=== PATIENT | male | born 1965 | race African-American/Black ===

== ENCOUNTER 2017-02-17 18:32 | Emergency (ER) | payer MEDICAID ==
[~2017-02-17] VITALS: Ht 188 cm; Wt 80.0 kg
[2017-02-17] MEDS ORDERED: KETOROLAC 60MG/2ML VIAL IM ONE (21:45)
[2017-02-17 22:31] VITALS: BP 131/84
== END 2017-02-17 23:33 | disposition home or self-care (01) ==
LOC: ER 18:32
DX: S39.012A Strain of muscle, fascia and tendon of lower back, initial encounter (principal); V49.40XA Driver injured in collision with unspecified motor vehicles in traffic accident, initial encounter; Y93.89 Activity, other specified; Y92.410 Unspecified street and highway as the place of occurrence of the external cause; F15.10 Other stimulant abuse, uncomplicated
CPT/HCPCS: 96372; 99283; J1885; Z7610

== ENCOUNTER 2017-02-17 23:38 | Emergency (ER) | payer MEDICAID ==
[~2017-02-17] VITALS: Ht 172.7 cm; Wt 65.0 kg
[2017-02-18] MEDS ORDERED: HYDROCODONE/ACETAMINOPHEN 5/325MG TABLET PO ONE (00:30)
[2017-02-18 02:20] VITALS: BP 133/113
== END 2017-02-18 03:06 | disposition home or self-care (01) ==
LOC: ER 02-18 01:54
DX: M25.552 Pain in left hip (principal); G89.29 Other chronic pain; F15.10 Other stimulant abuse, uncomplicated; V89.2XXA Person injured in unspecified motor-vehicle accident, traffic, initial encounter; Y93.89 Activity, other specified; Y92.488 Other paved roadways as the place of occurrence of the external cause
CPT/HCPCS: 72192; 73700; 99284; Z7610

== ENCOUNTER 2017-03-21 02:08 | Emergency (ER) | payer MEDICAID | END 2017-03-21 02:37 | disposition left against medical advice (07) | LOC: ER 02:10 | DX: R06.02 Shortness of breath (principal); Z53.21 Procedure and treatment not carried out due to patient leaving prior to being seen by health care provider ==

== ENCOUNTER 2017-05-22 12:17 | Emergency (ER) | payer MEDICAID ==
[~2017-05-22 12:17] MED LIST: ATOR20TA65 PO; COR6 PO; FURO-151 PO; HYDR-4001 PO; LISI2.5T47 PO; RIVA20TA PO
== END 2017-05-22 13:58 | disposition left against medical advice (07) ==
LOC: ER 13:47
DX: Z53.21 Procedure and treatment not carried out due to patient leaving prior to being seen by health care provider (principal)

== ENCOUNTER 2017-06-05 11:53 | Inpatient (IN) | payer MEDICAID ==
[~2017-06-05] VITALS: Ht 188 cm; Wt 80.3 kg
[2017-06-05 13:00] LABS: BASOPHILS % 0.7 % (0.0-2.0); HEMATOCRIT. 40.2 % (42.0-52.0); HEMOGLOBIN. 13.1 g/dL (14.0-18.0); LYMPHOCYTES % 14.3 % (20.0-50.0); MEAN CORPUSCULAR HEMOGLOBIN 28.5 pg (28.0-32.0); MEAN CORPUSCULAR VOLUME 87.7 fL (80.0-94.0); MEAN PLATELET VOLUME 10.6 fl (7.4-10.4); MONOCYTES % 9.1 % (2.0-8.0); NEUTROPHILS % 74.9 % (40.0-76.0); PLATELET 154 x1000/uL (130-400); RED BLOOD CELL COUNT 4.58 mill/uL (4.7-6.1); RED CELL DISTRIBUTION WIDTH 15.7 % (11.6-14.6)
[2017-06-05 13:05] LABS: CHLORIDE 105 mEq/L (98-107)
[2017-06-05 13:21] LABS: CARBON DIOXIDE 26 mEq/L (21-32)
[2017-06-05] MEDS ORDERED: FUROSEMIDE 40MG/4ML VIAL IVP ONE (15:00)
[2017-06-05] MEDS ORDERED: ENOXAPARIN 60MG/0.6ML SYR SUBCUT ONE (15:15)
[2017-06-05 15:33] LABS: INR 1.4; PARTIAL THROMBOPLASTIN TIME 27.1 sec (23.4-31.0); PROTHROMBIN TIME 15.1 sec (9.4-11.6)
[2017-06-05] MEDS ORDERED: KETOROLAC 30MG/ML VIAL IV ONE (16:30)
[2017-06-05 17:19] LABS: CLARITY URINE CLEAR (CLEAR); COLOR URINE YELLOW (YELLOW); KETONES URINE NEGATIVE (NEGATIVE); LEUKOCYTE ESTERASE URINE NEGATIVE (NEGATIVE); NITRITE URINE NEGATIVE (NEGATIVE); OCCULT BLOOD URINE NEGATIVE (NEGATIVE); PROTEIN URINE NEGATIVE (NEGATIVE); SPECIFIC GRAVITY URINE 1.012 (1.005-1.030)
[2017-06-05] MEDS ORDERED: CLONIDINE 0.1MG TABLET PO PRN (17:30)
[2017-06-05] MEDS ORDERED: ONDANSETRON HCL 4MG/2ML VIAL IV PRN (17:30)
[2017-06-05] MEDS ORDERED: DIPHENHYDRAMINE 50MG/ML VIAL IV PRN (17:30)
[2017-06-05] MEDS ORDERED: ACETAMINOPHEN 325MG TABLET PO PRN (17:30)
[2017-06-05 17:34] LABS: *AMPHETAMINES SCREEN URINE NEGATIVE (NEGATIVE); *BARBITURATES SCREEN URINE NEGATIVE (NEGATIVE); *BENZODIAZEPINES SCREEN URINE NEGATIVE (NEGATIVE); *COCAINE SCREEN URINE NEGATIVE (NEGATIVE); CANNABINOID URINE SCREEN NEGATIVE (NEGATIVE); METHADONE URINE SCREEN NEGATIVE (NEGATIVE); OPIATES URINE SCREEN NEGATIVE (NEGATIVE); PHENCYCLIDINE URINE SCREEN NEGATIVE (NEGATIVE)
[2017-06-05 18:27] VITALS: BP 103/55
[2017-06-05 18:40] VITALS: BP 103/55
[2017-06-05 19:45] VITALS: BP 108/78
[2017-06-05] MEDS: HYDROCODONE/ACETAMINOPHEN 5/325MG TABLET PO PRN (19:46)
[2017-06-06] VITALS: BP 108/77
[2017-06-06] MEDS: HYDROCODONE/ACETAMINOPHEN 5/325MG TABLET PO PRN ×5 (00:03→22:35)
[2017-06-06 04:00] VITALS: BP 111/75
[2017-06-06] MEDS: FUROSEMIDE 40MG/4ML VIAL IV SCH ×2 (05:40→16:05)
[2017-06-06 07:47] LABS: BASOPHILS % 0.9 % (0.0-2.0); EOSINOPHILS % 3.1 % (0.0-5.0); HEMATOCRIT. 38.1 % (42.0-52.0); HEMOGLOBIN. 12.4 g/dL (14.0-18.0); LYMPHOCYTES % 23.7 % (20.0-50.0); MEAN CORPUSCULAR HEMOGLOBIN 28.3 pg (28.0-32.0); MEAN CORPUSCULAR VOLUME 87.1 fL (80.0-94.0); MEAN PLATELET VOLUME 10.5 fl (7.4-10.4); MONOCYTES % 11.2 % (2.0-8.0); NEUTROPHILS % 61.1 % (40.0-76.0); PLATELET 143 x1000/uL (130-400); RED BLOOD CELL COUNT 4.38 mill/uL (4.7-6.1); RED CELL DISTRIBUTION WIDTH 15.5 % (11.6-14.6)
[2017-06-06 08:00] VITALS: BP 104/65
[2017-06-06 08:09] LABS: CARBON DIOXIDE 26 mEq/L (21-32); CHLORIDE 106 mEq/L (98-107); HDL CHOLESTEROL 31 mg/dL (40-59); LDL CHOLESTEROL 75 mg/dL (5-100); TROPONIN I 0.04 ng/mL (0.00-0.04)
[2017-06-06 12:00] VITALS: BP 107/79
[2017-06-06] MEDS: RIVAROXABAN 20 MG TABLET PO SCH (12:14)
[2017-06-06 16:00] VITALS: BP 107/74
[2017-06-06] MEDS: IPRATROPIUM/ALBUTEROL 0.5-3(2.5)MG/3ML NEB INH PRN (16:17)
[2017-06-06 20:00] VITALS: BP 120/69
[2017-06-06] MEDS: ATORVASTATIN CALCIUM 20MG TABLET PO SCH (21:00)
[2017-06-06] MEDS: CARVEDILOL 6.25 MG TABLET PO SCH (21:00)
[2017-06-07] VITALS: BP 127/65
[2017-06-07] MEDS: HYDROCODONE/ACETAMINOPHEN 5/325MG TABLET PO PRN ×4 (03:27→19:00)
[2017-06-07 03:51] VITALS: BP 108/77
[2017-06-07] MEDS: IPRATROPIUM/ALBUTEROL 0.5-3(2.5)MG/3ML NEB INH PRN (04:07)
[2017-06-07] MEDS: FUROSEMIDE 40MG/4ML VIAL IV SCH ×3 (06:59→17:11)
[2017-06-07] MEDS: CARVEDILOL 6.25 MG TABLET PO SCH (07:40)
[2017-06-07 08:00] VITALS: BP 120/49
[2017-06-07] MEDS: RIVAROXABAN 20 MG TABLET PO SCH (08:25)
[2017-06-07] MEDS: LISINOPRIL 2.5MG TABLET PO SCH (08:25)
[2017-06-07 12:00] VITALS: BP 133/82
[2017-06-07 16:00] VITALS: BP 108/58
[2017-06-07] MEDS: CARVEDILOL 12.5MG TABLET PO SCH (17:12)
[2017-06-07 20:00] VITALS: BP 115/77
[2017-06-07] MEDS: ATORVASTATIN CALCIUM 20MG TABLET PO SCH (20:11)
[2017-06-07] MEDS: LORAZEPAM 2MG/ML CPJ IV PRN (22:01)
[2017-06-08] VITALS: BP 139/70
[2017-06-08 04:56] VITALS: BP 110/67
[2017-06-08] MEDS: HYDROCODONE/ACETAMINOPHEN 5/325MG TABLET PO PRN ×3 (05:09→14:16)
[2017-06-08] MEDS: FUROSEMIDE 40MG/4ML VIAL IV SCH ×2 (06:11→06:15)
[2017-06-08] MEDS: CARVEDILOL 12.5MG TABLET PO SCH (07:40)
[2017-06-08 08:00] VITALS: BP 99/70
[2017-06-08] MEDS: RIVAROXABAN 20 MG TABLET PO SCH (09:00)
[2017-06-08] MEDS: LISINOPRIL 2.5MG TABLET PO SCH (09:00)
[2017-06-08 12:00] VITALS: BP 101/55
[2017-06-08] MEDS ORDERED: CARVEDILOL 12.5MG TABLET PO SCH ×2 (13:30→17:40)
[2017-06-08] MEDS ORDERED: CARVEDILOL 6.25 MG TABLET PO SCH (13:30)
[2017-06-08] MEDS ORDERED: AMIODARONE HCL 200 MG TABLET PO SCH ×3 (13:30→17:40)
[2017-06-08] MEDS: LORAZEPAM 2MG/ML CPJ IV PRN ×2 (15:23→20:11)
[2017-06-08 16:00] VITALS: BP_SYST 101; BP_SYST 103; BP_DIAS 59
[2017-06-08 16:39] LABS: CARBON DIOXIDE 24 mEq/L (21-32); CHLORIDE 102 mEq/L (98-107)
[2017-06-08 20:00] VITALS: BP 108/82
[2017-06-08] MEDS: CARVEDILOL 6.25 MG TABLET PO SCH (20:03)
[2017-06-08] MEDS: ATORVASTATIN CALCIUM 20MG TABLET PO SCH (20:03)
[2017-06-08] MEDS: AMIODARONE HCL 200 MG TABLET PO SCH (21:20)
[2017-06-09] VITALS (53 sets, daily range): BP systolic 63–180; BP diastolic 20–112
[2017-06-09] MEDS: ZOLPIDEM TARTRATE 5MG TABLET PO PRN
[2017-06-09] MEDS: AMIODARONE HCL 200 MG TABLET PO SCH ×3 (06:00→22:00)
[2017-06-09] MEDS: CARVEDILOL 6.25 MG TABLET PO SCH ×2 (08:23→21:00)
[2017-06-09] MEDS: LISINOPRIL 2.5MG TABLET PO SCH (08:23)
[2017-06-09] MEDS: RIVAROXABAN 20 MG TABLET PO SCH (08:29)
[2017-06-09] MEDS: LORAZEPAM 2MG/ML CPJ IV PRN ×2 (08:30→13:19)
[2017-06-09] MEDS: HYDROCODONE/ACETAMINOPHEN 5/325MG TABLET PO PRN (08:31)
[2017-06-09 11:47] LABS: BG BASE EXCESS -0.5 mmol/L (-2.0-2.0); BG CARBOXYHEMOGLOBIN 0.8 % (0.5-1.5); BG DEOXYHEMOGLOBIN 1.9 % (0.0-5.0); BG FRACTION INSPIRED OXYGEN 36; BG HCO3 ACT 19.4 mmol/L (22.0-26.0); BG METHEMOGLOBIN 0.1 % (0.0-1.5); BG OXYGEN SATURATION 98.1 % (92.0-98.5); BG OXYHEMOGLOBIN 97.2 % (94.0-97.0); BG PCO2 21.3 mmHg (35.0-45.0); BG PH 7.577 (7.350-7.450); BG PO2 96.9 mmHg (75.0-100.0); BG SAMPLE SITE RIGHT BRACHIAL; BG TOTAL HEMOGLOBIN 13.7 g/dL (12.0-18.0); BG VENT MODE NASAL CANNULA
[2017-06-09] MEDS ORDERED: AMIODARONE HCL IV SCH (12:30)
[2017-06-09] MEDS ORDERED: WATER IV SCH (12:30)
[2017-06-09] MEDS ORDERED: DEXTROSE 5% IV SCH (12:30)
[2017-06-09] MEDS: AMIODARONE HCL 900 MG in DEXT 5% WATER 482 ML IV PRN (12:31)
[2017-06-09] MEDS: NOREPINEPHRINE 4 MG in DEXT 5% WATER 246 ML IV PRN ×2 (13:01→18:13)
[2017-06-09] MEDS ORDERED: LORAZEPAM 2MG/ML CPJ IM SCH (13:15)
[2017-06-09] MEDS ORDERED: NOREPINEPHRINE 4 MG in DEXT 5% WATER 246 ML IV PRN (13:30)
[2017-06-09] MEDS ORDERED: AMIODARONE HCL 150 MG in DEXT 5% WATER 100 ML IV NR (13:30)
[2017-06-09] MEDS ORDERED: HALOPERIDOL LACTATE 5MG/ML VIAL IM PRN ×2 (14:15→15:15)
[2017-06-09] MEDS ORDERED: SODIUM CHLORIDE 0.9% 1,000 ML IV SCH (14:30)
[2017-06-09] MEDS ORDERED: DILTIAZEM HCL 5MG/ML 5ML VIAL IV NR (15:30)
[2017-06-09 15:49] LABS: BASOPHILS % 0.6 % (0.0-2.0); EOSINOPHILS % 0.8 % (0.0-5.0); HEMATOCRIT. 42.9 % (42.0-52.0); HEMOGLOBIN. 13.2 g/dL (14.0-18.0); LYMPHOCYTES % 27.2 % (20.0-50.0); MEAN CORPUSCULAR VOLUME 91.4 fL (80.0-94.0); MEAN PLATELET VOLUME 11.3 fl (7.4-10.4); MONOCYTES % 10.5 % (2.0-8.0); NEUTROPHILS % 60.9 % (40.0-76.0); PLATELET 153 x1000/uL (130-400); RED CELL DISTRIBUTION WIDTH 16.4 % (11.6-14.6)
[2017-06-09 15:55] LABS: PHOSPHORUS 6.2 mg/dL (2.5-4.9)
[2017-06-09] MEDS ORDERED: DEXTROSE 50% WATER 50ML SYRINGE IV PRN (16:11)
[2017-06-09] MEDS: DEXTROSE 50% WATER 50ML SYRINGE IV PRN ×2 (16:13→16:28)
[2017-06-09] MEDS: FOLIC ACID 1 MG, THIAMINE HCL 100 MG, MVI, ADULT NO.1 10 ML in DEXTROSE 5% WATER 1,000 ML IV SCH ×4 (16:16)
[2017-06-09 16:39] LABS: HEPATITIS B SURFACE ANTIGEN NEGATIVE
[2017-06-09] MEDS ORDERED: DOPAMINE 400MG PREMIX 250 ML IV PRN (16:45)
[2017-06-09] MEDS ORDERED: SODIUM POLYSTYRENE SULFONATE 15 G/60 ML BOT PR NR (16:45)
[2017-06-09] MEDS ORDERED: DILTIAZEM HCL 125 MG in SODIUM CHLORIDE 0.9% 100 ML IV SCH (17:00)
[2017-06-09 17:07] LABS: HEPATITIS B CORE AB IGM NEGATIVE
[2017-06-09 17:08] LABS: HEPATITIS A AB IGM NEGATIVE (NEGATIVE)
[2017-06-09 17:10] LABS: BG BASE EXCESS -17.2 mmol/L (-2.0-2.0); BG CARBOXYHEMOGLOBIN 1.3 % (0.5-1.5); BG DEOXYHEMOGLOBIN 3.1 % (0.0-5.0); BG FRACTION INSPIRED OXYGEN 36; BG HCO3 ACT 8.3 mmol/L (22.0-26.0); BG METHEMOGLOBIN 0.3 % (0.0-1.5); BG OXYGEN SATURATION 96.8 % (92.0-98.5); BG OXYHEMOGLOBIN 95.3 % (94.0-97.0); BG PCO2 20.7 mmHg (35.0-45.0); BG PH 7.223 (7.350-7.450); BG PO2 109.9 mmHg (75.0-100.0); BG SAMPLE SITE RIGHT RADIAL; BG VENT MODE NASAL CANNULA
[2017-06-09] MEDS ORDERED: SODIUM BICARBONATE 8.4% 1 MEQ/ML 50ML SYR IV NR ×3 (17:15→19:15)
[2017-06-09] MEDS ORDERED: STERILE WATER FOR INJECTION 10ML VIAL ONE (17:30)
[2017-06-09] MEDS ORDERED: PROPOFOL 10MG/ML 100ML 100 ML IV PRN (17:30)
[2017-06-09] MEDS ORDERED: ETOMIDATE 2MG/ML 10ML VIAL IV ONE (17:30)
[2017-06-09] MEDS ORDERED: VECURONIUM BROMIDE 10 MG/VIAL IV ONE (17:30)
[2017-06-09] MEDS: BLOOD SUGAR DIAGNOSTIC STRIP TEST SCH (17:48)
[2017-06-09 18:38] LABS: BG BASE EXCESS -14.3 mmol/L (-2.0-2.0); BG CARBOXYHEMOGLOBIN 1.3 % (0.5-1.5); BG DEOXYHEMOGLOBIN 0.2 % (0.0-5.0); BG FRACTION INSPIRED OXYGEN 100; BG HCO3 ACT 14.8 mmol/L (22.0-26.0); BG METHEMOGLOBIN 0.6 % (0.0-1.5); BG OXYGEN SATURATION 99.8 % (92.0-98.5); BG OXYHEMOGLOBIN 97.9 % (94.0-97.0); BG PCO2 46.5 mmHg (35.0-45.0); BG PO2 348.3 mmHg (75.0-100.0); BG SAMPLE SITE LEFT RADIAL; BG TIDAL VOLUME(mL) 500 mL; BG TOTAL HEMOGLOBIN 14.5 g/dL (12.0-18.0); BG VENT MODE VENT - A/C; BG VENT RATE 18 set
[2017-06-09] MEDS: IPRATROPIUM/ALBUTEROL 0.5-3(2.5)MG/3ML NEB INH PRN (20:26)
[2017-06-09] MEDS ORDERED: MIDAZOLAM HCL 100 MG in SODIUM CHLORIDE 0.9% 100 ML IV PRN (20:30)
[2017-06-09] MEDS ORDERED: SODIUM BICARBONATE 150 MEQ in DEXTROSE 5% WATER 1,000 ML IV SCH (20:30)
[2017-06-09] MEDS: FENTANYL CITRATE/PF 500 MCG in SODIUM CHLORIDE 0.9% 40 ML IV PRN (20:40)
[2017-06-09] MEDS: NOREPINEPHRINE 32 MG in DEXT 5% WATER 468 ML IV PRN (20:43)
[2017-06-09] MEDS: ATORVASTATIN CALCIUM 20MG TABLET PO SCH (21:00)
[2017-06-09] MEDS: PHENYLEPHRINE 20 MG in DEXT 5% WATER 248 ML IV PRN (21:16)
[2017-06-09 23:05] LABS: BG BASE EXCESS -1.9 mmol/L (-2.0-2.0); BG CARBOXYHEMOGLOBIN 1.3 % (0.5-1.5); BG DEOXYHEMOGLOBIN 1.1 % (0.0-5.0); BG FRACTION INSPIRED OXYGEN 75; BG HCO3 ACT 21.7 mmol/L (22.0-26.0); BG METHEMOGLOBIN 0.3 % (0.0-1.5); BG OXYGEN SATURATION 98.9 % (92.0-98.5); BG OXYHEMOGLOBIN 97.3 % (94.0-97.0); BG PCO2 33.8 mmHg (35.0-45.0); BG PH 7.426 (7.350-7.450); BG PO2 135.6 mmHg (75.0-100.0); BG SAMPLE SITE RIGHT FEMORAL; BG TIDAL VOLUME(mL) 550 mL; BG TOTAL HEMOGLOBIN 13.7 g/dL (12.0-18.0); BG VENT MODE VENT - A/C; BG VENT RATE 24 set
[2017-06-10] VITALS (102 sets, daily range): BP systolic 83–132; BP diastolic 48–95
[2017-06-10] MEDS: BLOOD SUGAR DIAGNOSTIC STRIP TEST SCH ×6 (00:48→23:28)
[2017-06-10] MEDS: PHENYLEPHRINE 20 MG in DEXT 5% WATER 248 ML IV PRN (01:01)
[2017-06-10] MEDS: FENTANYL CITRATE/PF 500 MCG in SODIUM CHLORIDE 0.9% 40 ML IV PRN ×3 (01:27→17:42)
[2017-06-10] MEDS ORDERED: PHENYLEPHRINE 40 MG in DEXT 5% WATER 496 ML IV PRN (02:45)
[2017-06-10] MEDS ORDERED: DEXTROSE 50% WATER 50ML SYRINGE IV PRN (05:00)
[2017-06-10] MEDS ORDERED: BLOOD SUGAR DIAGNOSTIC STRIP TEST SCH (06:00)
[2017-06-10] MEDS: AMIODARONE HCL 200 MG TABLET PO SCH ×3 (06:00→22:18)
[2017-06-10] MEDS: INSULIN LISPRO 100 UNITS/ML SUBCUT SCH ×4 (06:00→23:28)
[2017-06-10] MEDS ORDERED: DEXTROSE 5% WATER 1,000 ML IV SCH (06:30)
[2017-06-10] MEDS: CARVEDILOL 6.25 MG TABLET PO SCH ×2 (07:32→21:00)
[2017-06-10 07:34] LABS: BG BASE EXCESS 2.1 mmol/L (-2.0-2.0); BG CARBOXYHEMOGLOBIN 0.4 % (0.5-1.5); BG DEOXYHEMOGLOBIN 2.1 % (0.0-5.0); BG HCO3 ACT 26.1 mmol/L (22.0-26.0); BG METHEMOGLOBIN 0.2 % (0.0-1.5); BG OXYGEN SATURATION 97.9 % (92.0-98.5); BG OXYHEMOGLOBIN 97.3 % (94.0-97.0); BG PCO2 38.4 mmHg (35.0-45.0); BG PO2 105.7 mmHg (75.0-100.0); BG SAMPLE SITE RIGHT RADIAL; BG TIDAL VOLUME(mL) 500 mL; BG TOTAL HEMOGLOBIN 13.7 g/dL (12.0-18.0); BG VENT MODE VENT - A/C; BG VENT RATE 12 set
[2017-06-10] MEDS: IPRATROPIUM/ALBUTEROL 0.5-3(2.5)MG/3ML NEB INH PRN (07:43)
[2017-06-10] MEDS ORDERED: SODIUM POLYSTYRENE SULFONATE 15 G/60 ML BOT NG SCH (07:45)
[2017-06-10] MEDS: DEXT 5%/0.9% NACL 1,000 ML IV SCH ×2 (09:15→17:30)
[2017-06-10 09:31] LABS: BASOPHILS % 0.2 % (0.0-2.0); HEMOGLOBIN. 12.6 g/dL (14.0-18.0); LYMPHOCYTES % 12.8 % (20.0-50.0); MEAN CORPUSCULAR HEMOGLOBIN 27.8 pg (28.0-32.0); MEAN PLATELET VOLUME 10.9 fl (7.4-10.4); MONOCYTES % 4.6 % (2.0-8.0); NEUTROPHILS % 82.4 % (40.0-76.0); PLATELET 95 x1000/uL (130-400); RED BLOOD CELL COUNT 4.54 mill/uL (4.7-6.1); RED CELL DISTRIBUTION WIDTH 16.1 % (11.6-14.6)
[2017-06-10 09:54] LABS: CREATINE KINASE 227 IU/L (39-308)
[2017-06-10] MEDS ORDERED: LIDOCAINE HCL 1% 20ML VIAL (Pyxis) INJ ONE (13:09)
[2017-06-10] MEDS ORDERED: SODIUM BICARBONATE 4% (2.4MEQ) 5ML VIAL IV ONE (13:10)
[2017-06-10] MEDS ORDERED: IOHEXOL-300 100 ML BOTTLE ONE (13:19)
[2017-06-10] MEDS ORDERED: IOHEXOL-300 50 ML BOTTLE IV ONE (13:19)
[2017-06-10] MEDS ORDERED: VANCOMYCIN 2,000 MG in SODIUM CHLORIDE 0.9% 500 ML IV NR (14:00)
[2017-06-10] MEDS ORDERED: SODIUM CHLORIDE 0.9% 10ML VIAL ONE (14:16)
[2017-06-10] MEDS: PIPERACILLIN/TAZ 3.375G PREMIX 50 ML IV SCH ×2 (15:04→22:18)
[2017-06-10] MEDS: IPRATROPIUM/ALBUTEROL 0.5-3(2.5)MG/3ML NEB HHN SCH ×2 (15:34→19:55)
[2017-06-10] MEDS: FOLIC ACID 1 MG, THIAMINE HCL 100 MG, MVI, ADULT NO.1 10 ML in DEXTROSE 5% WATER 1,000 ML IV SCH ×4 (17:14)
[2017-06-10 17:19] LABS: KETONES URINE NEGATIVE (NEGATIVE); LEUKOCYTE ESTERASE URINE 1+ (NEGATIVE); NITRITE URINE NEGATIVE (NEGATIVE); OCCULT BLOOD URINE 3+ (NEGATIVE); PROTEIN URINE 1+ (NEGATIVE); SPECIFIC GRAVITY URINE 1.022 (1.005-1.030)
[2017-06-10 17:20] LABS: COLOR URINE YELLOW (YELLOW)
[2017-06-10 17:21] LABS: CLARITY URINE SL HAZY (CLEAR)
[2017-06-10] MEDS: NOREPINEPHRINE 32 MG in DEXT 5% WATER 468 ML IV PRN (17:40)
[2017-06-10] MEDS: ATORVASTATIN CALCIUM 20MG TABLET PO SCH (22:18)
[2017-06-11] VITALS (97 sets, daily range): BP systolic 75–126; BP diastolic 46–76
[2017-06-11] MEDS: IPRATROPIUM/ALBUTEROL 0.5-3(2.5)MG/3ML NEB HHN SCH ×7 (00:18→23:56)
[2017-06-11] MEDS: DEXT 5%/0.9% NACL 1,000 ML IV SCH ×2 (01:28→17:27)
[2017-06-11] MEDS: FENTANYL CITRATE/PF 500 MCG in SODIUM CHLORIDE 0.9% 40 ML IV PRN ×3 (01:35→18:36)
[2017-06-11] MEDS: MIDAZOLAM HCL 100 MG in SODIUM CHLORIDE 0.9% 80 ML IV PRN (01:36)
[2017-06-11] MEDS: PIPERACILLIN/TAZ 3.375G PREMIX 50 ML IV SCH ×3 (05:33→22:15)
[2017-06-11] MEDS: BLOOD SUGAR DIAGNOSTIC STRIP TEST SCH ×4 (05:34→21:00)
[2017-06-11] MEDS: INSULIN LISPRO 100 UNITS/ML SUBCUT SCH ×3 (05:34→18:00)
[2017-06-11] MEDS: AMIODARONE HCL 200 MG TABLET PO SCH ×3 (05:34→22:16)
[2017-06-11 05:45] LABS: BASOPHILS % 0.3 % (0.0-2.0); EOSINOPHILS % 0.5 % (0.0-5.0); HEMATOCRIT. 37.3 % (42.0-52.0); HEMOGLOBIN. 11.9 g/dL (14.0-18.0); LYMPHOCYTES % 9.9 % (20.0-50.0); MEAN CORPUSCULAR VOLUME 87.5 fL (80.0-94.0); MEAN PLATELET VOLUME 10.7 fl (7.4-10.4); MONOCYTES % 4.5 % (2.0-8.0); NEUTROPHILS % 84.8 % (40.0-76.0); PLATELET 100 x1000/uL (130-400); RED BLOOD CELL COUNT 4.26 mill/uL (4.7-6.1)
[2017-06-11 06:05] LABS: PHOSPHORUS 3.4 mg/dL (2.5-4.9)
[2017-06-11 07:50] LABS: BG BASE EXCESS 7.7 mmol/L (-2.0-2.0); BG CARBOXYHEMOGLOBIN 0.4 % (0.5-1.5); BG DEOXYHEMOGLOBIN 3.2 % (0.0-5.0); BG FRACTION INSPIRED OXYGEN 45; BG HCO3 ACT 32.6 mmol/L (22.0-26.0); BG METHEMOGLOBIN 0.3 % (0.0-1.5); BG OXYGEN SATURATION 96.8 % (92.0-98.5); BG OXYHEMOGLOBIN 96.1 % (94.0-97.0); BG PCO2 46.9 mmHg (35.0-45.0); BG PO2 88.4 mmHg (75.0-100.0); BG SAMPLE SITE RIGHT RADIAL; BG TIDAL VOLUME(mL) 500 mL; BG VENT MODE VENT - A/C; BG VENT RATE 12 set
[2017-06-11] MEDS: CARVEDILOL 6.25 MG TABLET PO SCH ×2 (08:05→21:46)
[2017-06-11] MEDS: PANTOPRAZOLE SODIUM 40 MG/VIAL IV SCH (08:36)
[2017-06-11] MEDS: NOREPINEPHRINE 32 MG in DEXT 5% WATER 468 ML IV PRN (08:40)
[2017-06-11] MEDS ORDERED: FUROSEMIDE 40MG/4ML VIAL IVP NR (09:45)
[2017-06-11] MEDS ORDERED: ALBUMIN HUMAN 25GM/100ML (25%) IV NR (09:45)
[2017-06-11] MEDS: FOLIC ACID 1MG TABLET NG SCH (10:18)
[2017-06-11] MEDS: THIAMINE HCL 100MG TABLET NG SCH (10:18)
[2017-06-11] MEDS: QUETIAPINE FUMARATE 25MG TABLET PO SCH ×2 (10:18→21:46)
[2017-06-11] MEDS: MULTIVITAMINS,THER W-MINERALS TABLET NG SCH (10:47)
[2017-06-11 11:02] LABS: AMMONIA 33 uMol/L (<32)
[2017-06-11] MEDS: VANCOMYCIN 750 MG PREMIX 150 ML IV SCH (12:26)
[2017-06-11] MEDS ORDERED: POTASSIUM CHLORIDE INJ 40 MEQ in DEXT 5% WATER 250 ML IV NR (14:00)
[2017-06-11 17:07] LABS: ANTI-NUCLEAR ANTIBODIES DIRECT Negative (Negative)
[2017-06-11] MEDS: ATORVASTATIN CALCIUM 20MG TABLET PO SCH (21:45)
[2017-06-11] MEDS: ZOLPIDEM TARTRATE 5MG TABLET PO PRN (21:46)
[2017-06-12] VITALS (98 sets, daily range): BP systolic 76–129; BP diastolic 48–70
[2017-06-12] MEDS: VANCOMYCIN 750 MG PREMIX 150 ML IV SCH ×2 (00:20→08:49)
[2017-06-12] MEDS: DEXT 5%/0.9% NACL 1,000 ML IV SCH (02:09)
[2017-06-12] MEDS ORDERED: ACETAMINOPHEN 650MG/20.3ML UDC ONE (02:26)
[2017-06-12] MEDS: IPRATROPIUM/ALBUTEROL 0.5-3(2.5)MG/3ML NEB HHN SCH ×5 (04:14→19:38)
[2017-06-12 05:41] LABS: HEMATOCRIT. 36.6 % (42.0-52.0); MEAN CORPUSCULAR HEMOGLOBIN 28.7 pg (28.0-32.0); MEAN CORPUSCULAR VOLUME 87.8 fL (80.0-94.0); MEAN PLATELET VOLUME 10.4 fl (7.4-10.4); PLATELET 93 x1000/uL (130-400); RED BLOOD CELL COUNT 4.17 mill/uL (4.7-6.1); RED CELL DISTRIBUTION WIDTH 15.9 % (11.6-14.6)
[2017-06-12] MEDS: INSULIN LISPRO 100 UNITS/ML SUBCUT SCH ×5 (06:00→23:23)
[2017-06-12] MEDS: BLOOD SUGAR DIAGNOSTIC STRIP TEST SCH ×4 (06:11→23:24)
[2017-06-12] MEDS: PIPERACILLIN/TAZ 3.375G PREMIX 50 ML IV SCH ×2 (06:18→14:09)
[2017-06-12] MEDS: AMIODARONE HCL 200 MG TABLET PO SCH ×3 (06:18→21:06)
[2017-06-12 06:52] LABS: PLATELET ESTIMATE DECREASED
[2017-06-12 07:18] LABS: COMPLEMENT C3 72 mg/dL (82-167)
[2017-06-12 07:53] LABS: BG BASE EXCESS 4.1 mmol/L (-2.0-2.0); BG CARBOXYHEMOGLOBIN 1.1 % (0.5-1.5); BG DEOXYHEMOGLOBIN 2.5 % (0.0-5.0); BG FRACTION INSPIRED OXYGEN 45; BG HCO3 ACT 28.7 mmol/L (22.0-26.0); BG METHEMOGLOBIN 0.1 % (0.0-1.5); BG OXYGEN SATURATION 97.5 % (92.0-98.5); BG OXYHEMOGLOBIN 96.3 % (94.0-97.0); BG PCO2 43.2 mmHg (35.0-45.0); BG PH 7.441 (7.350-7.450); BG PO2 97.7 mmHg (75.0-100.0); BG PRESSURE SUPPORT 8; BG SAMPLE SITE RIGHT RADIAL; BG TIDAL VOLUME(mL) 450 mL; BG TOTAL HEMOGLOBIN 12.4 g/dL (12.0-18.0); BG VENT MODE VENT - SIMV; BG VENT RATE 12 set
[2017-06-12] MEDS: PANTOPRAZOLE SODIUM 40 MG/VIAL IV SCH (08:49)
[2017-06-12] MEDS: FOLIC ACID 1MG TABLET NG SCH (08:49)
[2017-06-12] MEDS: THIAMINE HCL 100MG TABLET NG SCH (08:50)
[2017-06-12] MEDS: CARVEDILOL 6.25 MG TABLET PO SCH ×2 (08:50→20:42)
[2017-06-12] MEDS: QUETIAPINE FUMARATE 25MG TABLET PO SCH ×2 (08:50→21:06)
[2017-06-12] MEDS: MULTIVITAMINS,THER W-MINERALS TABLET NG SCH (08:50)
[2017-06-12] MEDS ORDERED: ALBUMIN HUMAN 25GM/100ML (25%) IV NR (09:13)
[2017-06-12 11:16] LABS: BG BASE EXCESS 5.6 mmol/L (-2.0-2.0); BG CARBOXYHEMOGLOBIN 0.6 % (0.5-1.5); BG DEOXYHEMOGLOBIN 3.1 % (0.0-5.0); BG FRACTION INSPIRED OXYGEN 45; BG HCO3 ACT 30.2 mmol/L (22.0-26.0); BG METHEMOGLOBIN 0.2 % (0.0-1.5); BG OXYGEN SATURATION 96.9 % (92.0-98.5); BG OXYHEMOGLOBIN 96.1 % (94.0-97.0); BG PH 7.454 (7.350-7.450); BG PO2 90.4 mmHg (75.0-100.0); BG PRESSURE SUPPORT 8; BG SAMPLE SITE RIGHT RADIAL; BG TOTAL HEMOGLOBIN 12.2 g/dL (12.0-18.0); BG VENT MODE VENT - CPAP
[2017-06-12] MEDS: METOCLOPRAMIDE HCL 10MG TABLET PO SCH ×3 (12:21→23:15)
[2017-06-12] MEDS: ACETAMINOPHEN 650MG/20.3ML UDC PO PRN ×2 (12:23→23:15)
[2017-06-12] MEDS: NOREPINEPHRINE 32 MG in DEXT 5% WATER 468 ML IV PRN (12:41)
[2017-06-12] MEDS: CEFTRIAXONE 2 G in SODIUM CHLORIDE 0.9% 50 ML IV SCH (17:20)
[2017-06-12] MEDS: FENTANYL CITRATE/PF 500 MCG in SODIUM CHLORIDE 0.9% 40 ML IV PRN (17:21)
[2017-06-12] MEDS: ATORVASTATIN CALCIUM 20MG TABLET PO SCH (21:06)
[2017-06-12] MEDS ORDERED: PHENYLEPHRINE 40 MG in SODIUM CHLORIDE 0.9% 246 ML IV PRN (23:00)
[2017-06-13] VITALS (103 sets, daily range): BP systolic 75–142; BP diastolic 39–103
[2017-06-13] MEDS: PHENYLEPHRINE 40 MG in DEXT 5% WATER 246 ML IV PRN (03:32)
[2017-06-13] MEDS: IPRATROPIUM/ALBUTEROL 0.5-3(2.5)MG/3ML NEB HHN SCH ×6 (04:41→20:34)
[2017-06-13 05:37] LABS: HEMATOCRIT. 35.1 % (42.0-52.0); HEMOGLOBIN. 11.4 g/dL (14.0-18.0); MEAN CORPUSCULAR HEMOGLOBIN 28.1 pg (28.0-32.0); MEAN CORPUSCULAR VOLUME 86.6 fL (80.0-94.0); MEAN PLATELET VOLUME 10.9 fl (7.4-10.4); PLATELET 95 x1000/uL (130-400); RED BLOOD CELL COUNT 4.05 mill/uL (4.7-6.1); RED CELL DISTRIBUTION WIDTH 16.2 % (11.6-14.6)
[2017-06-13] MEDS: INSULIN LISPRO 100 UNITS/ML SUBCUT SCH ×3 (05:51→18:00)
[2017-06-13] MEDS: BLOOD SUGAR DIAGNOSTIC STRIP TEST SCH ×3 (05:51→18:39)
[2017-06-13 05:54] LABS: PHOSPHORUS 4.2 mg/dL (2.5-4.9)
[2017-06-13] MEDS: ACETAMINOPHEN 650MG/20.3ML UDC PO PRN (05:55)
[2017-06-13] MEDS: CEFTRIAXONE 2 G in SODIUM CHLORIDE 0.9% 50 ML IV SCH ×2 (05:57→17:44)
[2017-06-13] MEDS: AMIODARONE HCL 200 MG TABLET PO SCH ×3 (05:58→22:00)
[2017-06-13] MEDS: METOCLOPRAMIDE HCL 10MG TABLET PO SCH ×3 (05:58→18:00)
[2017-06-13 08:38] LABS: NUCLEATED RED BLOOD CELLS 1 /100 WBC
[2017-06-13 08:39] LABS: PLATELET ESTIMATE SLIGHTLY DECREASED
[2017-06-13] MEDS: CARVEDILOL 6.25 MG TABLET PO SCH ×2 (09:00→21:00)
[2017-06-13 09:07] LABS: BG BASE EXCESS 4.3 mmol/L (-2.0-2.0); BG CARBOXYHEMOGLOBIN 0.7 % (0.5-1.5); BG DEOXYHEMOGLOBIN 1.4 % (0.0-5.0); BG FRACTION INSPIRED OXYGEN 45; BG HCO3 ACT 29.3 mmol/L (22.0-26.0); BG METHEMOGLOBIN 0.2 % (0.0-1.5); BG OXYGEN SATURATION 98.6 % (92.0-98.5); BG OXYHEMOGLOBIN 97.7 % (94.0-97.0); BG PH 7.431 (7.350-7.450); BG PO2 122.1 mmHg (75.0-100.0); BG PRESSURE SUPPORT 8; BG SAMPLE SITE RIGHT RADIAL; BG TOTAL HEMOGLOBIN 12.2 g/dL (12.0-18.0); BG VENT MODE VENT - CPAP
[2017-06-13] MEDS: PANTOPRAZOLE SODIUM 40 MG/VIAL IV SCH (09:29)
[2017-06-13] MEDS: FOLIC ACID 1MG TABLET NG SCH (09:29)
[2017-06-13] MEDS: MULTIVITAMINS,THER W-MINERALS TABLET NG SCH (09:29)
[2017-06-13] MEDS: THIAMINE HCL 100MG TABLET NG SCH (09:29)
[2017-06-13] MEDS: QUETIAPINE FUMARATE 25MG TABLET PO SCH ×2 (09:30→21:00)
[2017-06-13] MEDS: NOREPINEPHRINE 32 MG in DEXT 5% WATER 468 ML IV PRN (09:58)
[2017-06-13] MEDS ORDERED: LORAZEPAM 2MG/ML CPJ IV PRN (12:00)
[2017-06-13] MEDS ORDERED: HALOPERIDOL LACTATE 5MG/ML VIAL IM PRN (12:00)
[2017-06-13] MEDS: DEXT 5%/0.45% NACL 1000ML 1,000 ML IV SCH (17:44)
[2017-06-13] MEDS: ATORVASTATIN CALCIUM 20MG TABLET PO SCH (21:00)
[2017-06-14] VITALS (96 sets, daily range): BP systolic 73–114; BP diastolic 44–73
[2017-06-14] MEDS: IPRATROPIUM/ALBUTEROL 0.5-3(2.5)MG/3ML NEB HHN SCH ×7 (00:24→23:39)
[2017-06-14 00:44] LABS: BG BASE EXCESS 1.6 mmol/L (-2.0-2.0); BG CARBOXYHEMOGLOBIN 0.4 % (0.5-1.5); BG DEOXYHEMOGLOBIN 0.4 % (0.0-5.0); BG FRACTION INSPIRED OXYGEN 100; BG HCO3 ACT 25.2 mmol/L (22.0-26.0); BG METHEMOGLOBIN 0.2 % (0.0-1.5); BG OXYGEN SATURATION 99.6 % (92.0-98.5); BG PCO2 36.4 mmHg (35.0-45.0); BG PH 7.459 (7.350-7.450); BG PO2 261.4 mmHg (75.0-100.0); BG SAMPLE SITE RIGHT RADIAL; BG TIDAL VOLUME(mL) 500 mL; BG TOTAL HEMOGLOBIN 12.6 g/dL (12.0-18.0); BG VENT MODE VENT - A/C; BG VENT RATE 14 set
[2017-06-14] MEDS: ACETAMINOPHEN 650MG/20.3ML UDC PO PRN ×2 (01:05→17:20)
[2017-06-14] MEDS: AMIODARONE HCL 900 MG in DEXT 5% WATER 482 ML IV PRN ×2 (01:06→20:58)
[2017-06-14] MEDS: MIDAZOLAM HCL 100 MG in SODIUM CHLORIDE 0.9% 80 ML IV PRN ×2 (03:05→22:50)
[2017-06-14] MEDS: FENTANYL CITRATE/PF 500 MCG in SODIUM CHLORIDE 0.9% 40 ML IV PRN ×4 (03:06→22:51)
[2017-06-14 04:56] LABS: BASOPHILS % 0.5 % (0.0-2.0); EOSINOPHILS % 0.1 % (0.0-5.0); HEMATOCRIT. 37.6 % (42.0-52.0); HEMOGLOBIN. 12.1 g/dL (14.0-18.0); LYMPHOCYTES % 11.3 % (20.0-50.0); MEAN CORPUSCULAR HEMOGLOBIN 27.8 pg (28.0-32.0); MEAN CORPUSCULAR VOLUME 86.6 fL (80.0-94.0); MEAN PLATELET VOLUME 9.8 fl (7.4-10.4); NEUTROPHILS % 81.1 % (40.0-76.0); PLATELET 104 x1000/uL (130-400); RED BLOOD CELL COUNT 4.35 mill/uL (4.7-6.1); RED CELL DISTRIBUTION WIDTH 16.2 % (11.6-14.6)
[2017-06-14] MEDS: AMIODARONE HCL 200 MG TABLET PO SCH ×3 (05:37→22:00)
[2017-06-14] MEDS: CEFTRIAXONE 2 G in SODIUM CHLORIDE 0.9% 50 ML IV SCH ×2 (05:37→17:20)
[2017-06-14] MEDS: METOCLOPRAMIDE HCL 10MG TABLET PO SCH ×4 (05:38→18:37)
[2017-06-14] MEDS: INSULIN LISPRO 100 UNITS/ML SUBCUT SCH ×4 (05:38→18:00)
[2017-06-14] MEDS: BLOOD SUGAR DIAGNOSTIC STRIP TEST SCH ×4 (05:38→18:37)
[2017-06-14] MEDS ORDERED: SUCCINYLCHOLINE CHLORIDE 200MG/10ML VIAL IV ONE (07:43)
[2017-06-14] MEDS ORDERED: EPINEPHRINE 0.1MG/ML (1:10,000) 10ML SYR ONE (07:43)
[2017-06-14] MEDS ORDERED: SODIUM BICARBONATE 7.5% 0.9 MEQ/ML 50ML SYR IV ONE (07:43)
[2017-06-14] MEDS ORDERED: ETOMIDATE 2MG/ML 10ML VIAL IV ONE (07:43)
[2017-06-14] MEDS: CARVEDILOL 6.25 MG TABLET PO SCH ×2 (09:00→21:00)
[2017-06-14] MEDS: MULTIVITAMINS,THER W-MINERALS TABLET NG SCH (09:32)
[2017-06-14] MEDS: THIAMINE HCL 100MG TABLET NG SCH (09:32)
[2017-06-14] MEDS: FOLIC ACID 1MG TABLET NG SCH (09:32)
[2017-06-14] MEDS: QUETIAPINE FUMARATE 25MG TABLET PO SCH ×2 (09:32→21:00)
[2017-06-14] MEDS: PANTOPRAZOLE SODIUM 40 MG/VIAL IV SCH (09:32)
[2017-06-14 09:50] LABS: BG BASE EXCESS 3.5 mmol/L (-2.0-2.0); BG CARBOXYHEMOGLOBIN 0.6 % (0.5-1.5); BG FRACTION INSPIRED OXYGEN 100; BG HCO3 ACT 28.8 mmol/L (22.0-26.0); BG METHEMOGLOBIN 0.3 % (0.0-1.5); BG OXYHEMOGLOBIN 97.1 % (94.0-97.0); BG PCO2 46.3 mmHg (35.0-45.0); BG PH 7.411 (7.350-7.450); BG PO2 107.7 mmHg (75.0-100.0); BG SAMPLE SITE RIGHT RADIAL; BG TIDAL VOLUME(mL) 500 mL; BG VENT MODE VENT - A/C; BG VENT RATE 14 set
[2017-06-14] MEDS: NOREPINEPHRINE 32 MG in DEXT 5% WATER 468 ML IV PRN (12:37)
[2017-06-14 18:25] LABS: BG BASE EXCESS 0.8 mmol/L (-2.0-2.0); BG CARBOXYHEMOGLOBIN 0.8 % (0.5-1.5); BG DEOXYHEMOGLOBIN 1.5 % (0.0-5.0); BG FRACTION INSPIRED OXYGEN 100; BG HCO3 ACT 28.6 mmol/L (22.0-26.0); BG METHEMOGLOBIN 0.1 % (0.0-1.5); BG OXYGEN SATURATION 98.5 % (92.0-98.5); BG OXYHEMOGLOBIN 97.6 % (94.0-97.0); BG PCO2 60.1 mmHg (35.0-45.0); BG PH 7.296 (7.350-7.450); BG PO2 126.7 mmHg (75.0-100.0); BG SAMPLE SITE RIGHT RADIAL; BG TIDAL VOLUME(mL) 500 mL; BG TOTAL HEMOGLOBIN 13.9 g/dL (12.0-18.0); BG VENT MODE VENT - A/C; BG VENT RATE 14 set
[2017-06-14] MEDS: DEXT 5%/0.45% NACL 1000ML 1,000 ML IV SCH (18:38)
[2017-06-14] MEDS: PHENYLEPHRINE 40 MG in DEXT 5% WATER 246 ML IV PRN (20:58)
[2017-06-14] MEDS: ATORVASTATIN CALCIUM 20MG TABLET PO SCH (21:00)
[2017-06-14 21:06] LABS: BG BASE EXCESS 4.1 mmol/L (-2.0-2.0); BG CARBOXYHEMOGLOBIN 1.1 % (0.5-1.5); BG DEOXYHEMOGLOBIN 2.5 % (0.0-5.0); BG FRACTION INSPIRED OXYGEN 100; BG HCO3 ACT 28.9 mmol/L (22.0-26.0); BG METHEMOGLOBIN 0.3 % (0.0-1.5); BG OXYGEN SATURATION 97.5 % (92.0-98.5); BG OXYHEMOGLOBIN 96.1 % (94.0-97.0); BG PCO2 44.3 mmHg (35.0-45.0); BG PH 7.433 (7.350-7.450); BG PIP 21 cmH2O; BG PO2 91.8 mmHg (75.0-100.0); BG SAMPLE SITE RIGHT RADIAL; BG TIDAL VOLUME(mL) 550 mL; BG TOTAL HEMOGLOBIN 13.6 g/dL (12.0-18.0); BG VENT MODE VENT - A/C; BG VENT RATE 22 set
[2017-06-15] VITALS (100 sets, daily range): BP systolic 82–108; BP diastolic 42–67
[2017-06-15] MEDS: METOCLOPRAMIDE HCL 10MG TABLET PO SCH ×4 (00:04→17:49)
[2017-06-15] MEDS: BLOOD SUGAR DIAGNOSTIC STRIP TEST SCH ×4 (00:05→17:49)
[2017-06-15] MEDS: IPRATROPIUM/ALBUTEROL 0.5-3(2.5)MG/3ML NEB HHN SCH ×5 (03:54→20:33)
[2017-06-15 04:40] LABS: BASOPHILS % 0.3 % (0.0-2.0); EOSINOPHILS % 0.1 % (0.0-5.0); HEMATOCRIT. 40.5 % (42.0-52.0); HEMOGLOBIN. 12.9 g/dL (14.0-18.0); LYMPHOCYTES % 10.9 % (20.0-50.0); MEAN CORPUSCULAR HEMOGLOBIN 27.8 pg (28.0-32.0); MEAN CORPUSCULAR VOLUME 87.1 fL (80.0-94.0); MEAN PLATELET VOLUME 10.3 fl (7.4-10.4); NEUTROPHILS % 81.7 % (40.0-76.0); PLATELET 108 x1000/uL (130-400); RED BLOOD CELL COUNT 4.65 mill/uL (4.7-6.1); RED CELL DISTRIBUTION WIDTH 16.7 % (11.6-14.6)
[2017-06-15] MEDS: FENTANYL CITRATE/PF 500 MCG in SODIUM CHLORIDE 0.9% 40 ML IV PRN ×2 (05:32→16:17)
[2017-06-15] MEDS: CEFTRIAXONE 2 G in SODIUM CHLORIDE 0.9% 50 ML IV SCH ×2 (05:33→17:49)
[2017-06-15] MEDS: AMIODARONE HCL 200 MG TABLET PO SCH ×3 (05:33→22:31)
[2017-06-15] MEDS: INSULIN LISPRO 100 UNITS/ML SUBCUT SCH ×4 (05:41→17:49)
[2017-06-15 08:20] LABS: BG CARBOXYHEMOGLOBIN 0.9 % (0.5-1.5); BG DEOXYHEMOGLOBIN 0.9 % (0.0-5.0); BG FRACTION INSPIRED OXYGEN 100; BG HCO3 ACT 30.2 mmol/L (22.0-26.0); BG METHEMOGLOBIN 0.4 % (0.0-1.5); BG OXYGEN SATURATION 99.1 % (92.0-98.5); BG OXYHEMOGLOBIN 97.8 % (94.0-97.0); BG PCO2 46.4 mmHg (35.0-45.0); BG PH 7.431 (7.350-7.450); BG SAMPLE SITE RIGHT RADIAL; BG TIDAL VOLUME(mL) 500 mL; BG VENT MODE VENT - A/C; BG VENT RATE 22 set
[2017-06-15] MEDS: MULTIVITAMINS,THER W-MINERALS TABLET NG SCH (08:44)
[2017-06-15] MEDS: THIAMINE HCL 100MG TABLET NG SCH (08:44)
[2017-06-15] MEDS: FOLIC ACID 1MG TABLET NG SCH (08:44)
[2017-06-15] MEDS: QUETIAPINE FUMARATE 25MG TABLET PO SCH ×2 (08:44→21:00)
[2017-06-15] MEDS: LACTULOSE 20G/30ML UDC PO PRN ×2 (08:44→17:50)
[2017-06-15] MEDS: PANTOPRAZOLE SODIUM 40 MG/VIAL IV SCH (08:44)
[2017-06-15] MEDS: CARVEDILOL 6.25 MG TABLET PO SCH ×2 (08:44→21:00)
[2017-06-15] MEDS: PHENYLEPHRINE 40 MG in DEXT 5% WATER 246 ML IV PRN (10:44)
[2017-06-15] MEDS: ACETAMINOPHEN 650MG/20.3ML UDC PO PRN ×2 (12:28→20:07)
[2017-06-15 13:12] LABS: BG BASE EXCESS 4.2 mmol/L (-2.0-2.0); BG CARBOXYHEMOGLOBIN 0.9 % (0.5-1.5); BG DEOXYHEMOGLOBIN 9.4 % (0.0-5.0); BG FRACTION INSPIRED OXYGEN 50; BG HCO3 ACT 28.3 mmol/L (22.0-26.0); BG METHEMOGLOBIN 0.3 % (0.0-1.5); BG OXYGEN SATURATION 90.5 % (92.0-98.5); BG OXYHEMOGLOBIN 89.4 % (94.0-97.0); BG PCO2 40.3 mmHg (35.0-45.0); BG PH 7.464 (7.350-7.450); BG PO2 56.1 mmHg (75.0-100.0); BG SAMPLE SITE RIGHT RADIAL; BG TIDAL VOLUME(mL) 550 mL; BG TOTAL HEMOGLOBIN 14.1 g/dL (12.0-18.0); BG VENT MODE VENT - A/C; BG VENT RATE 16 set
[2017-06-15] MEDS: NOREPINEPHRINE 32 MG in DEXT 5% WATER 468 ML IV PRN (16:46)
[2017-06-15] MEDS: ATORVASTATIN CALCIUM 20MG TABLET PO SCH (21:00)
[2017-06-16] VITALS (114 sets, daily range): BP systolic 54–113; BP diastolic 33–72
[2017-06-16] MEDS: IPRATROPIUM/ALBUTEROL 0.5-3(2.5)MG/3ML NEB HHN SCH ×5 (00:22→20:49)
[2017-06-16] MEDS: METOCLOPRAMIDE HCL 10MG TABLET PO SCH ×4 (00:36→18:44)
[2017-06-16] MEDS: BLOOD SUGAR DIAGNOSTIC STRIP TEST SCH ×4 (00:36→18:00)
[2017-06-16] MEDS: FENTANYL CITRATE/PF 500 MCG in SODIUM CHLORIDE 0.9% 40 ML IV PRN ×2 (02:15→13:43)
[2017-06-16] MEDS: MIDAZOLAM HCL 100 MG in SODIUM CHLORIDE 0.9% 80 ML IV PRN (02:16)
[2017-06-16] MEDS: AMIODARONE HCL 900 MG in DEXT 5% WATER 482 ML IV PRN (02:26)
[2017-06-16 04:25] LABS: BG BASE EXCESS 3.1 mmol/L (-2.0-2.0); BG DEOXYHEMOGLOBIN 6.8 % (0.0-5.0); BG FRACTION INSPIRED OXYGEN 100; BG METHEMOGLOBIN 0.3 % (0.0-1.5); BG OXYGEN SATURATION 93.1 % (92.0-98.5); BG OXYHEMOGLOBIN 91.9 % (94.0-97.0); BG PCO2 43.5 mmHg (35.0-45.0); BG PH 7.426 (7.350-7.450); BG PO2 66.7 mmHg (75.0-100.0); BG SAMPLE SITE RIGHT RADIAL; BG TIDAL VOLUME(mL) 550 mL; BG TOTAL HEMOGLOBIN 14.4 g/dL (12.0-18.0); BG VENT MODE VENT - A/C; BG VENT RATE 16 set
[2017-06-16 04:54] LABS: BASOPHILS % 0.3 % (0.0-2.0); EOSINOPHILS % 0.1 % (0.0-5.0); HEMOGLOBIN. 13.8 g/dL (14.0-18.0); LYMPHOCYTES % 7.6 % (20.0-50.0); MEAN CORPUSCULAR HEMOGLOBIN 27.2 pg (28.0-32.0); MEAN CORPUSCULAR VOLUME 86.5 fL (80.0-94.0); MEAN PLATELET VOLUME 10.8 fl (7.4-10.4); PLATELET 51 x1000/uL (130-400); RED BLOOD CELL COUNT 5.08 mill/uL (4.7-6.1); RED CELL DISTRIBUTION WIDTH 16.8 % (11.6-14.6)
[2017-06-16 05:13] LABS: CARBON DIOXIDE 30 mEq/L (21-32); CHLORIDE 98 mEq/L (98-107); PHOSPHORUS 2.9 mg/dL (2.5-4.9)
[2017-06-16] MEDS: CEFTRIAXONE 2 G in SODIUM CHLORIDE 0.9% 50 ML IV SCH ×2 (05:51→18:50)
[2017-06-16] MEDS: AMIODARONE HCL 200 MG TABLET PO SCH ×2 (05:52→14:00)
[2017-06-16] MEDS: INSULIN LISPRO 100 UNITS/ML SUBCUT SCH ×3 (06:00→12:00)
[2017-06-16] MEDS ORDERED: PHENYLEPHRINE 40 MG in DEXT 5% WATER 246 ML IV PRN (10:00)
[2017-06-16] MEDS: FOLIC ACID 1MG TABLET NG SCH (10:05)
[2017-06-16] MEDS: QUETIAPINE FUMARATE 25MG TABLET PO SCH (10:05)
[2017-06-16] MEDS: THIAMINE HCL 100MG TABLET NG SCH (10:05)
[2017-06-16] MEDS: PANTOPRAZOLE SODIUM 40 MG/VIAL IV SCH (10:06)
[2017-06-16] MEDS: MULTIVITAMINS,THER W-MINERALS TABLET NG SCH (10:06)
[2017-06-16] MEDS: CARVEDILOL 6.25 MG TABLET PO SCH (10:06)
[2017-06-16] MEDS ORDERED: LACTULOSE 20G/30ML UDC PO PRN (11:30)
[2017-06-16] MEDS ORDERED: DOCUSATE SODIUM SUGAR FREE 100MG/10ML UDC NG SCH (11:30)
[2017-06-16] MEDS ORDERED: DEXT 5%/0.45% NACL 1000ML 1,000 ML IV SCH (11:30)
[2017-06-16] MEDS ORDERED: VASOPRESSIN 10 UNIT in SODIUM CHLORIDE 0.9% 99.5 ML IV PRN (15:00)
[2017-06-16] MEDS: NOREPINEPHRINE 32 MG in DEXT 5% WATER 468 ML IV PRN (15:14)
[2017-06-16] MEDS: PHENYLEPHRINE 40 MG in DEXT 5% WATER 246 ML IV PRN (17:37)
[2017-06-16] MEDS ORDERED: MORPHINE SULFATE 250 MG in DEXT 5% WATER 240 ML IV PRN (23:45)
[2017-06-17] VITALS: BP 56/29
[2017-06-17 01:00] VITALS: BP 50/30
[2017-06-17 03:09] VITALS: BP 36/23
== END 2017-06-17 04:20 | disposition expired | DRG 720 ==
LOC: ER 12:09 → 8WST 16:42 → EDBEDREQTM 16:44 → EDBEDREQ 16:44 → ENRESERV 16:57 → 8WST 06-08 23:19 → CVICU 06-09 11:24
PROVIDERS: ADMIT Internal Medicine; ATTEND Internal Medicine
PROC: 0BH17EZ Insertion of Endotracheal Airway into Trachea, Via Natural or Artificial Opening (ICD-10-PCS; principal; 2017-06-09)
PROC: 5A1955Z Respiratory Ventilation, Greater than 96 Consecutive Hours (ICD-10-PCS; 2017-06-09)
PROC: 02HV33Z Insertion of Infusion Device into Superior Vena Cava, Percutaneous Approach (ICD-10-PCS; 2017-06-09)
PROC: B548ZZA Ultrasonography of Superior Vena Cava, Guidance (ICD-10-PCS; 2017-06-09)
PROC: 0BH17EZ Insertion of Endotracheal Airway into Trachea, Via Natural or Artificial Opening (ICD-10-PCS; 2017-06-09)
PROC: 06H03DZ Insertion of Intraluminal Device into Inferior Vena Cava, Percutaneous Approach (ICD-10-PCS; 2017-06-10)
PROC: B5191ZZ Fluoroscopy of Inferior Vena Cava using Low Osmolar Contrast (ICD-10-PCS; 2017-06-10)
PROC: 0BH17EZ Insertion of Endotracheal Airway into Trachea, Via Natural or Artificial Opening (ICD-10-PCS; 2017-06-14)
PROC: 5A1945Z Respiratory Ventilation, 24-96 Consecutive Hours (ICD-10-PCS; 2017-06-14)
DX: A41.9 Sepsis, unspecified organism (principal); J96.00 Acute respiratory failure, unspecified whether with hypoxia or hypercapnia; N17.0 Acute kidney failure with tubular necrosis; E43 Unspecified severe protein-calorie malnutrition; R57.0 Cardiogenic shock; R65.21 Severe sepsis with septic shock; G93.41 Metabolic encephalopathy; D68.9 Coagulation defect, unspecified; E87.2 Acidosis; J14 Pneumonia due to Hemophilus influenzae; I49.01 Ventricular fibrillation; I50.23 Acute on chronic systolic (congestive) heart failure; Z66 Do not resuscitate; D68.59 Other primary thrombophilia; I42.9 Cardiomyopathy, unspecified; I27.20 Pulmonary hypertension, unspecified; E78.5 Hyperlipidemia, unspecified; N18.9 Chronic kidney disease, unspecified; I13.0 Hypertensive heart and chronic kidney disease with heart failure and stage 1 through stage 4 chronic kidney disease, or unspecified chronic kidney disease; D64.9 Anemia, unspecified; D69.6 Thrombocytopenia, unspecified; E87.5 Hyperkalemia; F17.210 Nicotine dependence, cigarettes, uncomplicated; G89.29 Other chronic pain; I48.92 Unspecified atrial flutter; I82.412 Acute embolism and thrombosis of left femoral vein; M19.90 Unspecified osteoarthritis, unspecified site; Z96.649 Presence of unspecified artificial hip joint; J44.0 Chronic obstructive pulmonary disease with (acute) lower respiratory infection; T45.515A Adverse effect of anticoagulants, initial encounter; Y92.89 Other specified places as the place of occurrence of the external cause; Z79.899 Other long term (current) drug therapy; Z86.73 Personal history of transient ischemic attack (TIA), and cerebral infarction without residual deficits; Z91.19 Patient's noncompliance with other medical treatment and regimen; Z68.22 Body mass index [BMI] 22.0-22.9, adult
CPT/HCPCS: 31500; 36415; 36569; 36600; 37191; 71045; 76770; 76937; 78580; 80048; 80053; 80061; 80202; 80305; 81001; 81003; 82140; 82375; 82550; 82805; 82962; 83735; 83880; 84100; 84132; 84478; 84484; 85025; 85610; 85730; 86038; 86160; 86705; 86709; 86803; 87040; 87070; 87077; 87086; 87340; 92950; 93005; 93971; 94002; 94003; 94640; 96372; 96374; 96375; 97162; 99285; A4216; C1725; C1769; C1880; C9113; J0171; J0282; J0330; J0696; J1630; J1644; J1650; J1885; J1940; J2060; J2250; J2274; J2370; J2543; J3010; J3370; J3411; J3480; J3490; J7040; J7042; J7050; J7060; J7070; J7620; J8597; P9047; Q9967; A4315